=== PATIENT | male | born 1970 | race Caucasian/White ===

== ENCOUNTER 2018-04-18 09:52 | Emergency (ER) | payer OTHER ==
[2018-04-18 10:00] VITALS: TEMP 97.9
--- NOTE | 2018-04-18 10:29 | ED ---
General Adult HPI - General Chief complaint: ENT Stated complaint: facial swelling Time Seen by Provider: 04/18/18 10:05 Source: patient, RN notes reviewed Mode of arrival: ambulatory Limitations: no limitations - History of Present Illness Initial comments: 47-year-old male presents to the emergency department for a chief complaint of "lump under his right jaw" x 1.5 weeks. Patient states it started as a small bump under his right jaw. Patient states it has been gradually getting bigger over the past week. Patient states it is tender to touch. Patient denies any fevers or chills. Patient denies any tooth aches or pains but states he has poor dentition. Patient denies any sore throat, ear pain, cough. Patient states he has not seen a dentist in quite some time. Patient denies any medical history or history of cancer. Patient has no other complaints at this time including shortness of breath, chest pain, abdominal pain, nausea or vomiting, headache, or visual changes. - Related Data Previous Rx's Medication Instructions Recorded Penicillin V Potassium [Pen Vee K] 500 mg PO Q6H 10 Days tablet 04/18/18 Allergies Allergy/AdvReac Type Severity Reaction Status Date / Time No Known Allergies Allergy Verified 04/18/18 09:56 Review of Systems ROS Statement: Those systems with pertinent positive or pertinent negative responses have been documented in the HPI. ROS Other: All systems not noted in ROS Statement are negative. Past Medical History Past Medical History: No Reported History History of Any Multi-Drug Resistant Organisms: None Reported Past Surgical History: Orthopedic Surgery Additional Past Surgical History / Comment(s): 3 RLE, L knee Past Psychological History: No Psychological Hx Reported Smoking Status: Current every day smoker Past Alcohol Use History: Occasional Past Drug Use History: None Reported General Exam Limitations: no limitations General appearance: alert, in no apparent distress Head exam: Present: atraumatic, normocephalic, normal inspection Eye exam: Present: normal appearance, PERRL, EOMI. Absent: scleral icterus, conjunctival injection, nystagmus, periorbital swelling, periorbital tenderness ENT exam: Present: TM's normal bilaterally (Non-erythematous), normal external ear exam. Absent: normal oropharynx (patient has poor dentition noted throughout. Patient has multiple dental caries in the bottom right teeth. Oropharynx is patent and non-compressed. Uvula is midline. Oropharynx nonerythematous. No tonsillar exudates noted bilaterally) Neck exam: Present: full ROM, other (Patient has a tender 4 cm x 4 cm area of induration inferior to the right mandible, likely a lymph node. Area is nonerythematous. No streaking redness. ). Absent: meningismus Respiratory exam: Present: normal lung sounds bilaterally. Absent: respiratory distress, wheezes, rales, rhonchi, stridor Cardiovascular Exam: Present: regular rate, normal rhythm, normal heart sounds. Absent: systolic murmur, diastolic murmur, rubs, gallop, clicks Neurological exam: Present: alert, oriented X3, CN II-XII intact Psychiatric exam: Present: normal affect, normal mood Course Vital Signs 04/18/18 04/18/18 09:56 10:36 Temperature 97.9 F Pulse Rate 85 75 Respiratory 16 18 Rate Blood Pressure 157/105 136/93 O2 Sat by Pulse 98 98 Oximetry Medical Decision Making - Medical Decision Making 47-year-old male presents to the emergency department for a chief complaint of "lump under right jawline" 1.5 weeks. Patient states this has been getting bigger since that time. Patient states he has poor dentition but does not have any dental pain at this time. On exam patient is a 4 cm x 4 cm area of induration under the right mandible. It is somewhat tender to touch. It is non -erythematous. Area is indurated and nonfluctuant. It is likely a lymph node due to poor dental hygiene as patient has multiple dental caries on the right inferior teeth and has not seen a dentist in quite some time. No tenderness of the parotid gland. Patient denies fevers or chills at home and is afebrile in the emergency department. Patient was given antibiotics. Discussed with patient returning to the emergency department if antibiotics do not help or he has any worsening symptoms. Patient agrees to do this. Discussed that more testing can be done if antibiotics do not resolve the issue which patient is aware of. He will also follow up with primary care in 1-2 days. Patient will follow-up for high blood pressure as well. Disposition Clinical Impression: Lymphadenopathy Disposition: HOME SELF-CARE Condition: Good Instructions: Dental Abscess (ED), Lymphadenopathy (ED) Additional Instructions: Please take Antibiotic as directed. Please follow-up with primary care or dentist in 1-2 days. If you have worsening symptoms or symptoms are not resolving return to the emergency department, as discussed. Prescriptions: Penicillin V Potassium [Pen Vee K] 500 mg PO Q6H 10 Days tablet Is patient prescribed a controlled substance at d/c from ED?: No Referrals: Sunil Mott MD [STAFF PHYSICIAN] - 1-2 days Time of Disposition: 10:27
[2018-04-18 10:36] VITALS: BP 136/93; PULSE 75; RESP 18
== END 2018-04-18 10:36 | disposition home or self-care (01) ==
LOC: EC 09:52
DX: R59.1 Generalized enlarged lymph nodes (principal); F17.200 Nicotine dependence, unspecified, uncomplicated
CPT/HCPCS: 99283

== ENCOUNTER 2019-06-02 19:23 | Emergency (ER) | payer OTHER ==
[2019-06-02 19:30] VITALS: TEMP 98.4
[2019-06-02] MEDS ORDERED: DIAZEPAM 5 MG/ML 2 ML INJ IVP STA (19:57)
[2019-06-02] MEDS ORDERED: levETIRAcetam IV 1,000 MG in SALINE 1 100ML.BAG IVPB STA (19:57)
[2019-06-02] MEDS ORDERED: SODIUM CHLORIDE 0.9% 1,000 ML IV STA (19:57)
--- NOTE | 2019-06-02 20:00 | ED ---
Seizure HPI - General Chief Complaint: Seizure Stated Complaint: seizure Time Seen by Provider: 06/02/19 19:49 Source: patient, EMS, RN notes reviewed, old records reviewed Mode of arrival: EMS Limitations: no limitations - History of Present Illness Initial Comments: This is a 49-year-old male presents today for evaluation of seizure activity. Patient states he did have an episode of seizure about 5 years ago, had no change in medications was not started on any medication had for evaluation with no source or cause found. Patient states he was at a barbecue today he did smoke currently woke up around 10 AM but just prior to arrival he did eat dinner had some dogs and family noticed patient shaking in the living room, patient does not record recollect anything or surrounding that event. He did urinate himself did not bite his tongue, patient denies drugs or alcohol otherwise today. Patient takes no medications and no medical history. Currently denying any complaints no headaches or recent fevers MD Complaint: seizure -: minutes(s) Description of Episode: loss of consciousness, bladder incontinence -: second(s) Witnessed: yes - by bystander Trauma: Yes Seizure History: other (She of seizure 1) Place: home Possible Precipitating Event: none Associated Symptoms: denies other symptoms Treatments Prior to Arrival: none - Related Data Home Medications Medication Instructions Recorded Confirmed No Known Home Medications 06/02/19 06/02/19 Allergies Allergy/AdvReac Type Severity Reaction Status Date / Time No Known Allergies Allergy Verified 06/02/19 19:39 Review of Systems ROS Statement: Those systems with pertinent positive or pertinent negative responses have been documented in the HPI. ROS Other: All systems not noted in ROS Statement are negative. Past Medical History Past Medical History: No Reported History History of Any Multi-Drug Resistant Organisms: MRSA Date of last positivie culture/infection: 1998 MDRO Source:: right arm Past Surgical History: Orthopedic Surgery Past Psychological History: No Psychological Hx Reported Smoking Status: Current every day smoker Past Alcohol Use History: Occasional Past Drug Use History: None Reported General Exam Limitations: no limitations General appearance: alert, in no apparent distress Head exam: Present: atraumatic, normocephalic, normal inspection Eye exam: Present: normal appearance, PERRL, EOMI. Absent: scleral icterus, conjunctival injection, periorbital swelling ENT exam: Present: normal exam, mucous membranes moist Neck exam: Present: normal inspection. Absent: tenderness, meningismus, lymphadenopathy Respiratory exam: Present: normal lung sounds bilaterally. Absent: respiratory distress, wheezes, rales, rhonchi, stridor Cardiovascular Exam: Present: regular rate, normal rhythm, normal heart sounds. Absent: systolic murmur, diastolic murmur, rubs, gallop, clicks GI/Abdominal exam: Present: soft, normal bowel sounds. Absent: distended, tenderness, guarding, rebound, rigid Extremities exam: Present: normal inspection, full ROM, normal capillary refill. Absent: tenderness, pedal edema, joint swelling, calf tenderness Back exam: Present: normal inspection Neurological exam: Present: alert, oriented X3, CN II-XII intact Psychiatric exam: Present: normal affect, normal mood Skin exam: Present: warm, dry, intact, normal color. Absent: rash Course Vital Signs 06/02/19 19:25 Temperature 98.4 F Pulse Rate 100 Respiratory 20 Rate Blood Pressure 126/77 O2 Sat by Pulse 97 Oximetry - Reevaluation(s) Reevaluation #1: 06/02/19 20:00 Medical records reviewed Reevaluation #2: 06/02/19 20:50 feels well no recurrent seizure here in the ER patient's awake alert mentating appropriately with normal vital signs Medical Decision Making - Medical Decision Making 49 male the ER for evaluation of seizure, seizure activity medication withdrawal maybe alcohol withdrawal. Patient did deny drinking alcohol today with did have mild elevated alcohol here in the ER. Patient is without complaint currently. Patient can be discharged home - Lab Data Result diagrams: 06/02/19 19:30 06/02/19 19:30 Lab Results 06/02/19 06/02/19 Range/Units 19:30 19:30 WBC 8.4 (3.8-10.6) k/uL RBC 5.03 (4.30-5.90) m/uL Hgb 16.6 (13.0-17.5) gm/dL Hct 47.8 (39.0-53.0) % MCV 95.2 (80.0-100.0) fL MCH 33.0 (25.0-35.0) pg MCHC 34.7 (31.0-37.0) g/dL RDW 13.9 (11.5-15.5) % Plt Count 187 (150-450) k/uL Neutrophils % 67 % Lymphocytes % 24 % Monocytes % 5 % Eosinophils % 2 % Basophils % 1 % Neutrophils # 5.6 (1.3-7.7) k/uL Lymphocytes # 2.0 (1.0-4.8) k/uL Monocytes # 0.4 (0-1.0) k/uL Eosinophils # 0.2 (0-0.7) k/uL Basophils # 0.1 (0-0.2) k/uL Sodium 134 L (137-145) mmol/L Potassium 3.9 (3.5-5.1) mmol/L Chloride 101 (98-107) mmol/L Carbon Dioxide 19 L (22-30) mmol/L Anion Gap 14 mmol/L BUN 12 (9-20) mg/dL Creatinine 1.27 H (0.66-1.25) mg/dL Est GFR (CKD-EPI)AfAm 77 (>60 ml/min/1.73 sqM) Est GFR (CKD-EPI)NonAf 67 (>60 ml/min/1.73 sqM) Glucose 140 H (74-99) mg/dL Calcium 9.7 (8.4-10.2) mg/dL Total Bilirubin 0.6 (0.2-1.3) mg/dL AST 39 (17-59) U/L ALT 31 (21-72) U/L Alkaline Phosphatase 61 (38-126) U/L Total Protein 7.1 (6.3-8.2) g/dL Albumin 4.1 (3.5-5.0) g/dL Salicylates <1.0 mg/dL Acetaminophen <10.0 ug/mL Serum Alcohol 13 mg/dL - Radiology Data Radiology results: report reviewed (CT brain is negative for acute disease), image reviewed Disposition Clinical Impression: New onset seizure Disposition: HOME SELF-CARE Condition: Good Instructions (If sedation given, give patient instructions): Recurrent Seizures in Adults (ED), New-Onset Seizure in Adults (ED) Is patient prescribed a controlled substance at d/c from ED?: No Referrals: None,Stated [Primary Care Provider] - 1-2 days
[2019-06-02 20:09] LABS: Basophils # (A) 0.1 k/uL (0-0.2); Basophils % (A) 1 %; Eosinophils # (A) 0.2 k/uL (0-0.7); Eosinophils % (A) 2 %; HCT 47.8 % (39.0-53.0); HGB 16.6 gm/dL (13.0-17.5); Lymphocytes % (A) 24 %; MCHC 34.7 g/dL (31.0-37.0); MCV 95.2 fL (80.0-100.0); Mean Platelet Volume 8.2; Monocytes # (A) 0.4 k/uL (0-1.0); Monocytes % (A) 5 %; Neutrophils # (A) 5.6 k/uL (1.3-7.7); Neutrophils % (A) 67 %; Platelet Count 187 k/uL (150-450); RBC 5.03 m/uL (4.30-5.90); RDW 13.9 % (11.5-15.5); WBC 8.4 k/uL (3.8-10.6)
[2019-06-02 20:19] LABS: ALT 31 U/L (21-72); AST 39 U/L (17-59); Acetaminophen <10.0 ug/mL; African American GFR (CKD) 77 (>60 ml/min/1.73 sqM); Albumin 4.1 g/dL (3.5-5.0); Alcohol 13 mg/dL; Alkaline Phosphatase 61 U/L (38-126); Anion Gap 14 mmol/L; Blood Urea Nitrogen 12 mg/dL (9-20); Calcium 9.7 mg/dL (8.4-10.2); Carbon Dioxide 19 mmol/L (22-30); Chloride 101 mmol/L (98-107); Glucose 140 mg/dL (74-99); Salicylate <1.0 mg/dL; Sodium 134 mmol/L (137-145); Total Bilirubin 0.6 mg/dL (0.2-1.3); Total Protein 7.1 g/dL (6.3-8.2)
--- NOTE | 2019-06-02 20:25 | CT ---
EXAMINATION TYPE: CT brain wo con DATE OF EXAM: 06/02/2019 COMPARISON: None INDICATION: Seizure activity DLP: 13988.4 mGycm, Automated exposure control for dose reduction was used. CONTRAST: None CT of the brain is performed utilizing 3 mm thick sections through the posterior fossa and 3 mm thick sections through the remaining calvarium. Study is performed within 24 hours of arrival to the hosp ital. No abnormal hyperdensity is present to suggest an acute intracranial hemorrhage. No mass lesion is evident. No acute infarcts are evident. Ventricles and sulci are appropriate for the patient age. Paranasal sinuses and mastoid air cells within the [id number] are clear. IMPRESSIONS: 1. No acute intracranial process.
[2019-06-02 20:31] LABS: Potassium 3.9 mmol/L (3.5-5.1)
[2019-06-02 20:44] LABS: Magnesium 1.6 mg/dL (1.6-2.3); Phosphorus 2.7 mg/dL (2.5-4.5)
[2019-06-02 21:05] VITALS: BP 111/67; PULSE 95; RESP 18
== END 2019-06-02 21:17 | disposition home or self-care (01) ==
LOC: EC 19:23 → MERGE 19:23 → EC 21:17
DX: R56.9 Unspecified convulsions (principal); R32 Unspecified urinary incontinence; F17.200 Nicotine dependence, unspecified, uncomplicated
CPT/HCPCS: 36415; 93005; 80053; 83735; 84100; 85025; 83520; 80329; 80320; 70450; 99285; 96365; 96375; 96361; J3360; J1953

== ENCOUNTER 2023-01-17 04:13 | Emergency (ER) | payer OTHER ==
[2023-01-17 04:21] VITALS: TEMP 97.5
[2023-01-17] MEDS ORDERED: MORPHINE SULFATE 4 MG/ML SYRINGE IVP STA (04:25)
[2023-01-17] MEDS ORDERED: SODIUM CHLORIDE 0.9% 1,000 ML IV ONE (04:26)
--- NOTE | 2023-01-17 04:28 | ED ---
General Adult HPI - General Chief complaint: Abdominal Pain Stated complaint: ABD PAIN Time Seen by Provider: 01/17/23 04:17 Source: patient Mode of arrival: EMS Limitations: no limitations - History of Present Illness Initial comments: This is a 52-year-old male with no past medical history presents emergency department via EMS for severe left upper quadrant abdominal pain. The patient stated that this abdominal pain has been intermittent and persistent over the last 3 weeks however stated that he woke up today with worsening acute pain that is the worse it is ever been. The patient described the pain as focused to the left upper quadrant of his abdomen and did not radiate. The patient reportedly had one episode of vomiting at home. The patient stated that initially he was drinking Pepsi that was helping his pain that then he ran out in his pain became worse tonight. The patient denied any fevers and chills but was in moderate distress secondary to abdominal pain. - Related Data Previous Rx's Medication Instructions Recorded Penicillin V Potassium [Pen Vee K] 500 mg PO Q6H 10 Days tablet 04/18/18 Famotidine [Pepcid AC] 10 mg PO BID #60 tablet 01/17/23 Allergies Allergy/AdvReac Type Severity Reaction Status Date / Time No Known Allergies Allergy Verified 01/17/23 04:21 Review of Systems ROS Statement: Those systems with pertinent positive or pertinent negative responses have been documented in the HPI. ROS Other: All systems not noted in ROS Statement are negative. Past Medical History Past Medical History: No Reported History, Hypertension History of Any Multi-Drug Resistant Organisms: MRSA, None Reported Date of last positivie culture/infection: 1998 MDRO Source:: right arm Past Surgical History: Orthopedic Surgery Additional Past Surgical History / Comment(s): 3 RLE, L knee Past Psychological History: No Psychological Hx Reported Past Alcohol Use History: Occasional Past Drug Use History: None Reported General Exam Limitations: no limitations General appearance: alert, in distress (Secondary to abdominal pain) Head exam: Present: atraumatic, normocephalic, normal inspection Eye exam: Present: normal appearance, PERRL Pupils: Present: normal accommodation ENT exam: Present: normal exam, normal oropharynx, mucous membranes moist Neck exam: Present: normal inspection, full ROM Respiratory exam: Present: normal lung sounds bilaterally Cardiovascular Exam: Present: regular rate, normal rhythm, normal heart sounds GI/Abdominal exam: Present: soft, tenderness (Tenderness noted epigastric and left upper quadrant), normal bowel sounds Extremities exam: Present: normal inspection, full ROM Back exam: Present: normal inspection, full ROM Neurological exam: Present: alert, oriented X3, CN II-XII intact Psychiatric exam: Present: normal affect, normal mood Skin exam: Present: warm, dry Course Vital Signs 01/17/23 01/17/23 04:14 05:37 Temperature 97.5 F L Pulse Rate 66 62 Respiratory 16 18 Rate Blood Pressure 165/114 186/118 O2 Sat by Pulse 99 98 Oximetry EKG Findings - EKG Comments: EKG Findings:: An EKG was obtained and was interpreted by myself showing a rate of 68, VA interval 126, QRS duration 93 and QTC of 411. This EKG showed a normal sinus rhythm with no ST segment elevation or depression noted. Medical Decision Making - Medical Decision Making Was pt. sent in by a medical professional or institution (, PA, SPECIAL EDUCATION COORDINATOR, urgent care, hospital, or skilled nursing...) When possible be specific @ -No Did you speak to anyone other than the patient for history (EMS, parent, family, police, friend...)? What history was obtained from this source @ -No Did you review nursing and triage notes (agree or disagree)? Why? @ -I reviewed and agree with nursing and triage notes Were old charts reviewed (outside hosp., previous admission, EMS record, old EKG, old radiological studies, urgent care reports/EKG's, skilled nursing records)? Report findings @ -No old charts were reviewed Differential Diagnosis (chest pain, altered mental status, abdominal pain women, abdominal pain men, vaginal bleeding, weakness, fever, dyspnea, syncope, headache, dizziness, GI bleed, back pain, seizure, CVA, palpatations, mental health)? @ -Small bowel obstruction, abdominal abscess, gastroenteritis, constipation EKG interpreted by me (3pts min.). @ -None X-rays interpreted by me (1pt min.). @ -None done CT interpreted by me (1pt min.). @ -CT of the abdomen and pelvis with IV contrast was obtained and was interpreted by myself showing inflammation and stranding around the stomach wall and lining concerning for gastritis versus peptic ulcer disease. There was no other acute findings noted. U/S interpreted by me (1pt. min.). @ -None done What testing was considered but not performed or refused? (CT, X-rays, U/S, labs)? Why? @ -None What meds were considered but not given or refused? Why? @ -None Did you discuss the management of the patient with other professionals (professionals i.e. , PA, SPECIAL EDUCATION COORDINATOR, lab, RT, psych nurse, social organization professor, foreman/pile driving and erection, teacher, air defense artillery officer, director of casework department)? Give summary @ -No Was smoking cessation discussed for >3mins.? @ -Yes Was critical care preformed (if so, how long)? @ -No Were there social determinants of health that impacted care today? How? (Homelessness, low income, unemployed, alcoholism, drug addiction, transportation, low edu. Level, literacy, decrease access to med. care, senior care, rehab)? @ -No Was there de-escalation of care discussed even if they declined (Discuss DNR or withdrawal of care, Hospice)? DNR status @ -No What co-morbidities impacted this encounter? (DM, HTN, Smoking, COPD, CAD, Cancer, CVA, ARF, Chemo, Hep., AIDS, mental health diagnosis, sleep apnea, m orbid obesity)? @ -None Was patient admitted / discharged? Hospital course, mention meds given and route, prescriptions, significant lab abnormalities, going to OR and other pertinent info. @ -The patient was seen and evaluated emergency department. Physical exam, the patient was complaining of left-sided abdominal pain and was in moderate distress secondary to this. Vital signs were stable. Laboratory workup was obtained and were within normal limits. CT abdomen and pelvis with IV contrast was also obtained however was to pending at this time. The patient did receive morphine initially for pain control and did have his pain under control for approximately [address] of the abdomen and pelvis with IV contrast was obtained and interpreted by myself showing inflammation to the stomach wall with stranding concerned for possible gastritis versus peptic ulcer disease. There was no other pathology noted. The patient on reevaluation and pain controlled and was given Pepcid for his findings. The patient was agreeable to being discharged and to follow-up with her gastric neurology for further workup and evaluation. The patient was given follow-up instructions to see Dr. Greenfield as well as a prescription for Pepcid to be taken at home. The patient was also advised to decrease foods increased acidity. The patient was agreeable to this and all his questions were answered. The patient was discharged home in stable condition. Undiagnosed new problem with uncertain prognosis? @ -No Drug Therapy requiring intensive monitoring for toxicity (Heparin, Nitro, Insulin, Cardizem)? @ -No Were any procedures done? @ -No Diagnosis/symptom? @ -Gastritis, possible PUD Acute, or Chronic, or Acute on Chronic? @ -Acute on chronic Uncomplicated (without systemic symptoms) or Complicated (systemic symptoms)? @ -Uncomplicated Side effects of treatment? @ -No Exacerbation, Progression, or Severe Exacerbation? @ -No Poses a threat to life or bodily function? How? (Chest pain, USA, AR, pneumonia, PE, COPD, DKA, ARF, appy, cholecystitis, CVA, Diverticulitis, Homicidal, Suicidal, threat to staff... and all critical care pts) @ -No - Lab Data Result diagrams: 01/17/23 04:20 01/17/23 04:20 Lab Results 01/17/23 01/17/23 01/17/23 Range/Units 04:20 04:20 04:33 WBC 11.5 H (3.8-10.6) k/uL RBC 4.92 (4.30-5.90) m/uL Hgb 15.4 (13.0-17.5) gm/dL Hct 46.3 (39.0-53.0) % MCV 94.1 (80.0-100.0) fL MCH 31.4 (25.0-35.0) pg MCHC 33.3 (31.0-37.0) g/dL RDW 13.9 (11.5-15.5) % Plt Count 231 (150-450) k/uL MPV 8.3 Neutrophils % 69 % Lymphocytes % 19 % Monocytes % 7 % Eosinophils % 3 % Basophils % 0 % Neutrophils # 7.9 H (1.3-7.7) k/uL Lymphocytes # 2.1 (1.0-4.8) k/uL Monocytes # 0.8 (0-1.0) k/uL Eosinophils # 0.4 (0-0.7) k/uL Basophils # 0.0 (0-0.2) k/uL Sodium 136 L (137-145) mmol/L Potassium 3.8 (3.5-5.1) mmol/L Chloride 95 L (98-107) mmol/L Carbon Dioxide 32 H (22-30) mmol/L Anion Gap 9 mmol/L BUN 14 (9-20) mg/dL Creatinine 1.46 H (0.66-1.25) mg/dL Est GFR (CKD-EPI)AfAm 64 (>60 ml/min/1.73 sqM) Est GFR (CKD-EPI)NonAf 55 (>60 ml/min/1.73 sqM) Glucose 105 H (74-99) mg/dL Calcium 9.4 (8.4-10.2) mg/dL Magnesium 1.9 (1.6-2.3) mg/dL Total Bilirubin 0.5 (0.2-1.3) mg/dL AST 28 (17-59) U/L ALT 19 (4-49) U/L Alkaline Phosphatase 57 (38-126) U/L Total Protein 7.0 (6.3-8.2) g/dL Albumin 4.0 (3.5-5.0) g/dL Lipase 242 (23-300) U/L Urine Color Light Yellow Urine Appearance Cloudy (Clear) Urine pH 8.5 H (5.0-8.0) Ur Specific [place] 1.024 (1.001-1.035) Urine Protein Negative (Negative) Urine Glucose (UA) Negative (Negative) Urine Ketones Negative (Negative) Urine Blood Negative (Negative) Urine Nitrite Negative (Negative) Urine Bilirubin Negative (Negative) Urine Urobilinogen <2.0 (<2.0) mg/dL Ur Leukocyte Esterase Negative (Negative) Urine WBC 1 (0-5) /hpf Amorphous Sediment Rare H (None) /hpf Urine Bacteria Rare H (None) /hpf Disposition Clinical Impression: Gastritis Disposition: HOME SELF-CARE Condition: Stable Prescriptions: Famotidine [Pepcid AC] 10 mg PO BID #60 tablet Is patient prescribed a controlled substance at d/c from ED?: No Referrals: None,Stated [Primary Care Provider] - 1-2 days Aileen Greenfield MD [STAFF PHYSICIAN] - 1-2 days Time of Disposition: 07:00
[2023-01-17 04:37] LABS: Basophils % (A) 0 %; Eosinophils # (A) 0.4 k/uL (0-0.7); Eosinophils % (A) 3 %; HCT 46.3 % (39.0-53.0); HGB 15.4 gm/dL (13.0-17.5); Lymphocytes # (A) 2.1 k/uL (1.0-4.8); Lymphocytes % (A) 19 %; MCH 31.4 pg (25.0-35.0); MCHC 33.3 g/dL (31.0-37.0); MCV 94.1 fL (80.0-100.0); Mean Platelet Volume 8.3; Monocytes # (A) 0.8 k/uL (0-1.0); Monocytes % (A) 7 %; Neutrophils # (A) 7.9 k/uL (1.3-7.7); Neutrophils % (A) 69 %; Platelet Count 231 k/uL (150-450); RBC 4.92 m/uL (4.30-5.90); RDW 13.9 % (11.5-15.5); WBC 11.5 k/uL (3.8-10.6)
[2023-01-17 04:56] LABS: Calcium 9.4 mg/dL (8.4-10.2); Total Bilirubin 0.5 mg/dL (0.2-1.3)
[2023-01-17 05:15] LABS: Potassium 3.8 mmol/L (3.5-5.1)
[2023-01-17 05:16] LABS: Magnesium 1.9 mg/dL (1.6-2.3)
[2023-01-17 05:40] VITALS: RESP 18
[2023-01-17 05:48] LABS: Amorphous Sediment,Urine Rare /hpf; Appearance,Urine Cloudy (Clear); Bacteria,Urine Rare /hpf; Bilirubin,Urine Negative (Negative); Blood,Urine Negative (Negative); Color,Urine Light Yellow; Glucose,Urine (UA) Negative (Negative); Ketones,Urine Negative (Negative); Leukocyte Esterase,Urine Negative (Negative); Nitrite,Urine Negative (Negative); PH, Urine 8.5 (5.0-8.0); Protein,Urine Negative (Negative); Specific Gravity,Urine 1.024 (1.001-1.035); Urobilinogen,Urine <2.0 mg/dL (<2.0); WBC,Urine 1 /hpf (0-5)
--- NOTE | 2023-01-17 06:59 | CT ---
EXAM: CT Abdomen and Pelvis With Intravenous Contrast CLINICAL HISTORY: ITS.REASON CT Reason: Severe LUQ pain TECHNIQUE: Axial computed tomography images of the abdomen and pelvis with intravenous contrast. CTDI is 30.5 mGy and DLP is 1314.6 mGy-cm. This CT exam was performed using one or more of the following dose reduction techniques: automated exposure control, adjustment of the mA and/or kV according to patient size, and/or use of iterative reconstruction technique. COMPARISON: No relevant prior studies available. FINDINGS: Lung bases: Bronchial wall thickening suggesting infectious versus inflammatory bronchitis. ABDOMEN: Liver: Mild hepatic steatosis. Gallbladder and bile ducts: Unremarkable. No calcified stones. No ductal dilation. Pancreas: Unremarkable. No mass. No ductal dilation. Spleen: Unremarkable. No splenomegaly. Adrenals: Unremarkable. No mass. Kidneys and ureters: Unremarkable. No solid mass. No hydronephrosis. Stomach and bowel: Wall thickening/edema involving the gastric antrum/pylorus with adjacent mild reactive lymphadenopathy and fat stranding suggesting infectious versus inflammatory gastritis and/or ulcer disease. Underdistention and/or wall thickening of the distal visualized esophagus, which may represent concurrent infectious versus inflammatory esophagitis. Mild colonic diverticulosis. No obstruction. No mucosal thickening. PELVIS: Appendix: No findings to suggest acute appendicitis. Bladder: Unremarkable. No mass. Reproductive: Coarse calcifications involving the prostate. ABDOMEN and PELVIS: Intraperitoneal space: Unremarkable. No free air. No significant fluid collection. Bones/joints: Mild/moderate narrowing of the L4-L5 intervertebral disc space. No acute fracture. No dislocation. Soft tissues: See below. Vasculature: Mild atherosclerotic vascular calcifications involving the intra-abdominal aorta. No abdominal aortic aneurysm. Lymph nodes: See above. IMPRESSION: 1. Wall thickening/edema involving the gastric antrum/pylorus with adjacent mild reactive lymphadenopathy and fat stranding suggesting infectious versus inflammatory gastritis and/or ulcer disease. Underdistention and/or wall thickening of the distal visualized esophagus, which may represent concurrent infectious versus inflammatory esophagitis. 2. Bronchial wall thickening suggesting infectious versus inflammatory bronchitis. 3. Mild hepatic steatosis. 4. Mild colonic diverticulosis.
[2023-01-17] MEDS ORDERED: FAMOTIDINE 20 MG/2 ML VIAL IV STA (07:01)
[2023-01-17 07:21] VITALS: BP 160/88; PULSE 80
== END 2023-01-17 07:21 | disposition home or self-care (01) ==
LOC: EC 04:13
DX: K29.70 Gastritis, unspecified, without bleeding (principal); I10 Essential (primary) hypertension
CPT/HCPCS: 36415; 93005; 80053; 83690; 83735; 85025; 81001; 74177; 99285; 96374; 96375; 96361; J2270; Q9967

== ENCOUNTER 2024-08-06 10:52 | Emergency (ER) | payer OTHER ==
[2024-08-06 10:58] VITALS: TEMP 97.7
[2024-08-06] MEDS: KETOROLAC 15 MG/ML 1 ML VIAL IVP STA (11:25)
[2024-08-06 11:33] LABS: Basophils % (A) 0 %; Eosinophils # (A) 0.3 k/uL (0-0.7); Eosinophils % (A) 2 %; HCT 47.7 % (39.0-53.0); HGB 16.1 gm/dL (13.0-17.5); Lymphocytes # (A) 1.7 k/uL (1.0-4.8); Lymphocytes % (A) 14 %; MCH 32.9 pg (25.0-35.0); MCHC 33.7 g/dL (31.0-37.0); MCV 97.6 fL (80.0-100.0); Mean Platelet Volume 8.5; Monocytes % (A) 9 %; Neutrophils # (A) 8.8 k/uL (1.3-7.7); Neutrophils % (A) 73 %; Platelet Count 207 k/uL (150-450); RBC 4.88 m/uL (4.30-5.90); RDW 12.2 % (11.5-15.5)
--- NOTE | 2024-08-06 11:44 | ED ---
Extremity Problem HPI - General Chief complaint: Extremity Problem,Nontraumatic Stated complaint: Bilateral Leg Pain Time Seen by Provider: 08/06/24 11:41 Source: patient, EMS, RN notes reviewed Mode of arrival: EMS Limitations: no limitations - History of Present Illness Initial comments: 54-year-old male presented to the ER via EMS with a chief complaint of bilateral ankle pain. Patient reports he has an extensive history of gout and has not been on any gout medications as he is homeless. He states last night he started noticed pain in his left foot which is now traveled up to his left calf. He states around 3 AM his right foot started to experience pain and travel up and calf. He believes this is a gout attack. He denies any injuries or traumas. Patient is reporting extreme pain but denies taking any medications. Patient denies any history of DVTs, PEs or blood thinner use. He states he has stopped consuming alcohol but is still currently smoking. Last night he ate a cheeseburger and fries from [employer] as he has difficulty with obtaining food. Denies any fevers, chills, nausea, vomiting, chest pain, shortness of breath, a bdominal pain, urinary complaints. - Related Data Previous Rx's Medication Instructions Recorded Penicillin V Potassium [Pen Vee K] 500 mg PO Q6H 10 Days tablet 04/18/18 Famotidine [Pepcid AC] 10 mg PO BID #60 tablet 01/17/23 Allergies Allergy/AdvReac Type Severity Reaction Status Date / Time No Known Allergies Allergy Verified 08/06/24 10:58 Review of Systems ROS Statement: Those systems with pertinent positive or pertinent negative responses have been documented in the HPI. ROS Other: All systems not noted in ROS Statement are negative. Past Medical History Past Medical History: Hypertension Additional Past Medical History / Comment(s): gout History of Any Multi-Drug Resistant Organisms: MRSA, None Reported Date of last positivie culture/infection: 1998 MDRO Source:: right arm Past Surgical History: Orthopedic Surgery Additional Past Surgical History / Comment(s): 3 RLE, L knee Past Psychological History: No Psychological Hx Reported Smoking Status: Current every day smoker Past Alcohol Use History: None Reported Past Drug Use History: Marijuana General Exam Limitations: no limitations General appearance: alert, in no apparent distress Respiratory exam: Present: normal lung sounds bilaterally. Absent: respiratory distress, wheezes, rales, rhonchi, stridor Cardiovascular Exam: Present: regular rate, normal rhythm, normal heart sounds. Absent: systolic murmur, diastolic murmur, rubs, gallop, clicks Extremities exam: Present: tenderness (Bilateral ankles. Nonpitting edema to foot. 2+ bilateral dorsalis pedis and posterior tibialis pulses. Healed surgical incision to lateral right ankle.), calf tenderness (Bilaterally) Neurological exam: Present: alert, oriented X3, CN II-XII intact Skin exam: Present: warm, dry, intact, normal color. Absent: rash Course Vital Signs 08/06/24 10:53 Temperature 97.7 F Pulse Rate 69 Respiratory 20 Rate Blood Pressure 150/94 O2 Sat by Pulse 100 Oximetry Medical Decision Making - Medical Decision Making Was pt. sent in by a medical professional or institution (, PA, WING COMMANDER, urgent care, hospital, or shelter...) When possible be specific @ -No Did you speak to anyone other than the patient for history (EMS, parent, family, police, friend...)? What history was obtained from this source @ -No Did you review nursing and triage notes (agree or disagree)? Why? @ -I reviewed and agree with nursing and triage notes Were old charts reviewed (outside hosp., previous admission, EMS record, old EKG, old radiological studies, urgent care reports/EKG's, shelter records)? Report findings @ -No old charts were reviewed Differential Diagnosis (chest pain, altered mental status, abdominal pain women, abdominal pain men, vaginal bleeding, weakness, fever, dyspnea, syncope, headache, dizziness, GI bleed, back pain, seizure, CVA, palpatations, mental health, musculoskeletal)? @ -Differential Musculoskeletal: Muscular strain, contusion, ligament sprain, fracture, arthritis, septic arthritis, bursitis, cellulitis, muscle spasm, nerve compression, DVT, arterial occlusion, herpes zoster, electrolyte abnormality, tumor.... This is not meant to be in all inclusive list EKG interpreted by me (3pts min.). @ -As above X-rays interpreted by me (1pt min.). @ -Bilateral ankle x-rays interpreted me negative for acute fractures or dislocations. CT interpreted by me (1pt min.). @ -None done U/S interpreted by me (1pt. min.). @ -Bilateral lower extremity ultrasound venous Doppler negative for acute evidence of DVT. What testing was considered but not performed or refused? (CT, X-rays, U/S, labs)? Why? @ -None What meds were considered but not given or refused? Why? @ -None Did you discuss the management of the patient with other professionals (professionals i.e. , PA, WING COMMANDER, lab, RT, psych nurse, social service manager, hand reamer, teacher, gifts officer, telephonic nurse case manager)? Give summary @ -No Was smoking cessation discussed for >3mins.? @ -I discussed smoking cessation for greater than 3 minutes. The risk of smoking were discussed with the patient including but not limited to risks of cancer, stroke, coronary artery disease and COPD. Also discussed with patient were multiple methods of quitting smoking. Lastly we discussed the financial cost of smoking. Was critical care preformed (if so, how long)? @ -No Were there social determinants of health that impacted care today? How? (Homelessness, low income, unemployed, alcoholism, drug addiction, transport ation, low edu. Level, literacy, decrease access to med. care, senior care, rehab)? @ -Yes, patient is homeless and uninsured. Patient unable to obtain prescription medications. Was there de-escalation of care discussed even if they declined (Discuss DNR or withdrawal of care, Hospice)? DNR status @ -No What co-morbidities impacted this encounter? (DM, HTN, Smoking, COPD, CAD, Cancer, CVA, ARF, Chemo, Hep., AIDS, mental health diagnosis, sleep apnea, morbid obesity)? @ -None Was patient admitted / discharged? Hospital course, mention meds given and route, prescriptions, significant lab abnormalities, going to OR and other pertinent info. @ -Discharge. 54-year-old male presented to ER with a chief complaint of bilateral ankle pain. History and physical exam completed. Vitals stable. Patient no signs of distress. Patient is neurovascularly intact. Calf tenderness bilaterally. CBC remarkable for leukocytosis of 12.0 with a left shift patient is a smoker. CMP significant for BUN 8, creatinine 1.27 with a GFR 65 this appears to be patient's baseline. Uric acid 6.4 with a CRP of 4.1. Imaging obtained negative for acute fractures, dislocations or evidence of DVTs. Given patient's history and current symptoms patient will be treated for gout with colchicine. As patient is homeless and has no medical insurance loading dose of colchicine given in the ER. Patient also given Toradol with improvement of pain. Advised patient to continue taking OTC ibuprofen for pain control outpatient and follow-up with PCP for reevaluation in the next 1 to 2 days. Patient is stable for discharge. Strict return parameters discussed. Patient discharged in stable condition with follow-up to PCP. Patient verbally expressed understanding and agreement with care plan. Case discussed with ED attending, Dr. Mclean. Undiagnosed new problem with uncertain prognosis? @ -No Drug Therapy requiring intensive monitoring for toxicity (Heparin, Nitro, Insulin, Cardizem)? @ -No Were any procedures done? @ -No Diagnosis/symptom? @ -Gout attack Acute, or Chronic, or Acute on Chronic? @ -Acute Uncomplicated (without systemic symptoms) or Complicated (systemic symptoms)? @ -Uncomplicated Side effects of treatment? @ -No Exacerbation, Progression, or Severe Exacerbation? @ -No Poses a threat to life or bodily function? How? (Chest pain, USA, [place], pneumonia, PE, COPD, DKA, ARF, appy, cholecystitis, CVA, Diverticulitis, Homicidal, Suicidal, threat to staff... and all critical care pts) @ -No - Lab Data Result diagrams: 08/06/24 11:22 08/06/24 11:22 Lab Results 08/06/24 08/06/24 Range/Units 11:22 11:22 WBC 12.0 H (3.8-10.6) k/uL RBC 4.88 (4.30-5.90) m/uL Hgb 16.1 (13.0-17.5) gm/dL Hct 47.7 (39.0-53.0) % MCV 97.6 (80.0-100.0) fL MCH 32.9 (25.0-35.0) pg MCHC 33.7 (31.0-37.0) g/dL RDW 12.2 (11.5-15.5) % Plt Count 207 (150-450) k/uL MPV 8.5 Neutrophils % 73 % Lymphocytes % 14 % Monocytes % 9 % Eosinophils % 2 % Basophils % 0 % Neutrophils # 8.8 H (1.3-7.7) k/uL Lymphocytes # 1.7 (1.0-4.8) k/uL Monocytes # 1.0 (0-1.0) k/uL Eosinophils # 0.3 (0-0.7) k/uL Basophils # 0.0 (0-0.2) k/uL Sodium 135 L (137-145) mmol/L Potassium 4.7 (3.5-5.1) mmol/L Chloride 102 (98-107) mmol/L Carbon Dioxide 31 H (22-30) mmol/L Anion Gap 2 mmol/L BUN 8 L (9-20) mg/dL Creatinine 1.27 H (0.66-1.25) mg/dL Est GFR (CKD-EPI)AfAm 75 (>60 ml/min/1.73 sqM) Est GFR (CKD-EPI)NonAf 65 (>60 ml/min/1.73 sqM) Glucose 111 H (74-99) mg/dL Uric Acid 6.4 (3.5-8.5) mg/dL Calcium 9.6 (8.4-10.2) mg/dL Total Bilirubin 1.0 (0.2-1.3) mg/dL AST 21 (17-59) U/L ALT 16 (4-49) U/L Alkaline Phosphatase 71 (38-126) U/L C-Reactive Protein 4.1 H (<1.0) mg/dL Total Protein 7.4 (6.3-8.2) g/dL Albumin 4.3 (3.5-5.0) g/dL - Radiology Data Radiology results: report reviewed, image reviewed Disposition Clinical Impression: Gout Disposition: HOME SELF-CARE Condition: Stable Instructions (If sedation given, give patient instructions): Low Purine Diet (ED), Gout (ED) Additional Instructions: Follow-up with PCP. Return to the ER for any new or worsening concerns. Take 0.6 mg of colchicine 1 hour post first dose here in the ER. Is patient prescribed a controlled substance at d/c from ED?: No Referrals: None,Stated [Primary Care Provider] - 1-2 days Forms: [facility], [facility] Time of Disposition: 13:51
[2024-08-06 11:58] LABS: ALT 16 U/L (4-49); AST 21 U/L (17-59); African American GFR (CKD) 75 (>60 ml/min/1.73 sqM); Albumin 4.3 g/dL (3.5-5.0); Alkaline Phosphatase 71 U/L (38-126); Anion Gap 2 mmol/L; Blood Urea Nitrogen 8 mg/dL (9-20); C Reactive Protein 4.1 mg/dL (<1.0); Calcium 9.6 mg/dL (8.4-10.2); Carbon Dioxide 31 mmol/L (22-30); Chloride 102 mmol/L (98-107); Glucose 111 mg/dL (74-99); Non-African American GFR(CKD) 65 (>60 ml/min/1.73 sqM); Potassium 4.7 mmol/L (3.5-5.1); Sodium 135 mmol/L (137-145); Total Protein 7.4 g/dL (6.3-8.2); Uric Acid 6.4 mg/dL (3.5-8.5)
--- NOTE | 2024-08-06 12:10 | XR ---
EXAMINATION TYPE: XR ankle complete bilateral DATE OF EXAM: 08/06/2024 COMPARISON: NONE HISTORY: Pain, history gout TECHNIQUE: Frontal, lateral and oblique images of both ankles are obtained. FINDINGS: There is no acute fracture/dislocation evident. Remote healed fracture of the distal right fibular diaphysis. No osseous erosions. The joint spaces appear within normal limits. No definitive ankle joint effusions. Soft tissue swelling of both ankles. Small Achilles calcaneal enthesophyte bi laterally. Calcification within the anterior right ankle soft tissues likely related to prior injury. Small spurring of the left anterior talus. IMPRESSION: 1. There is no acute fracture or dislocation seen. 2. No osseous erosions. 3. Mild bilateral ankle soft tissue swelling. 4. Remote injury to the distal right fibula. [facility], , 08/06/2024 12:08 PM
--- NOTE | 2024-08-06 13:16 | US ---
EXAMINATION TYPE: US venous doppler duplex LE DATE OF EXAM: 08/06/2024 12:57 PM COMPARISON: NONE CLINICAL INDICATION: Male, 54 years old with history of gunnar calf pain; bilat ankle pain, Hx gout, Heriberto n TECHNIQUE: The lower extremity deep venous system is examined utilizing real time linear array sonog missy with graded compression, color doppler sonography, and spectral doppler. SIDE PERFORMED: Bilateral FINDINGS: VESSELS IMAGED: Common Femoral Vein Deep Femoral Vein Greater Saphenous Vein * Femoral Vein Popliteal Vein Small Saphenous Vein * Proximal Calf Veins (* superficial vessels) Right Leg: Negative for DVT, Color Doppler imaging shows patency of the vessels. Spectral waveforms are within normal limits. Left Leg: Negative for DVT, Color Doppler imaging shows patency of the vessels. Spectral waveforms a re within normal limits. Anechoic fluid collection posterior rt knee: 4.9x0.9x3.7cm IMPRESSION: 1. No ultrasound evidence for deep venous thrombosis. 2. Right lower extremity Timmons's cyst . [facility], , 08/06/2024 1:14 PM
[2024-08-06] MEDS: COLCHICINE 0.6 MG EACH PO STA ×2 (13:58)
[2024-08-06] MEDS: ACETAMINOPHEN TAB 500 MG TAB PO STA (13:58)
[2024-08-06 14:08] VITALS: BP 153/99; PULSE 79; RESP 16
== END 2024-08-06 14:08 | disposition home or self-care (01) ==
LOC: EC 10:52
DX: M10.9 Gout, unspecified (principal); M25.572 Pain in left ankle and joints of left foot; M25.571 Pain in right ankle and joints of right foot; F17.200 Nicotine dependence, unspecified, uncomplicated
CPT/HCPCS: 36415; 80053; 84550; 85025; 86140; 73610; 93970; 99285; 96374; 99406; J1885